=== PATIENT | male | born 1975 | race Caucasian/White ===

== ENCOUNTER 2025-01-03 20:34 | Emergency (ER) | payer MEDICARE, SELFPAY ==
[2025-01-03 20:54] VITALS: BP 142/99; PULSE 97; TEMP 36.6; O2SAT 100; BMI 23.4
[2025-01-03 21:35] VITALS: O2SAT 97
--- NOTE | 2025-01-03 21:51 | ED.PSYCH1 ---
HPI - Psych General Chief Complaint: Psychiatric Symptoms Stated Complaint: SOB Time Seen by Provider: 01/03/25 21:46 Source: Reports patient Mode of arrival: walk-in Limitations: Reports no limitations History of Present Illness HPI Narrative: long history of panic and anxiety attacks. History of COPD and hyperlipidemia. States he moved back from [place] and is trying to find a new doctor. States he ran out of Farelogix 4 days ago. is feeling very anxious. No nausea, diaphoresis or tremor. Related Data Home Medications ?Medication ?Instructions ?Recorded ?Confirmed clonazepam 2 mg tablet 2 mg PO BID 01/03/25 01/03/25 emtricitabine 200 mg-tenofovir 1 tab PO DAILY 01/03/25 01/03/25 alafenamide fumarate 25 mg tablet (Descovy) esomeprazole magnesium 40 mg 40 mg PO Q24H 01/03/25 01/03/25 granules delayed release for susp ezetimibe 10 mg tablet 10 mg PO DAILY 01/03/25 01/03/25 fluticasone fur. 100 mcg-umeclid 1 inh inhalation DAILY 01/03/25 01/03/25 62.5 mcg-vilant 25 mcg inhalat.powder (Trelegy Ellipta) gabapentin 600 mg tablet 600 mg PO Q12H 01/03/25 01/03/25 gemfibrozil 600 mg tablet 600 mg PO DAILY 01/03/25 01/03/25 ipratropium bromide 21 mcg (0.03 2 spray intranasal TID 01/03/25 01/03/25 %) nasal spray levalbuterol HCl 1.25 mg/3 mL 1.25 mg inhalation TID PRN SOB 01/03/25 01/03/25 solution for nebulization montelukast 10 mg tablet 10 mg PO DAILY 01/03/25 01/03/25 pravastatin 40 mg tablet 40 mg PO DAILY 01/03/25 01/03/25 testosterone cypionate 200 mg/mL 100 mg IM QWEEK 01/03/25 01/03/25 intramuscular syringe vardenafil 20 mg tablet 20 mg PO DAILY 01/03/25 01/03/25 Allergies Allergy/AdvReac Type Severity Reaction Status Date / Time aspirin Allergy Unknown Verified 01/03/25 21:00 haloperidol (From Haldol) Allergy Unknown Verified 01/03/25 21:00 morphine Allergy Anaphylaxis Verified 01/03/25 21:00 Review of Systems ROS Status of ROS 10 or more systems reviewed and unremarkable except as noted in history and below Exam Constitutional Vital Signs, click to edit/add: Last Vital Signs Temp 97.9 F 01/03/25 20:54 Pulse 97 H 01/03/25 20:54 Resp 22 H 01/03/25 20:54 BP 142/99 H 01/03/25 20:54 Pulse Ox 100 01/03/25 20:54 O2 Del Method Room Air 01/03/25 20:54 Common normals: no apparent distress, average body habitus, oriented x3, no limitations, healthy appearing, alert and well nourished HENDE Common normals: normocephalic and head/scalp atraumatic Eye Common normals: EOMs intact bilaterally and conjunctivae normal Respiratory Common normals: normal respiratory effort, no retractions, no use of accessory muscles and clear to auscultation bilaterally Cardio Common normals: regular rate, regular rhythm, S1 normal heart sound and S2 normal heart sound GI Common normals: Normal to inspection, nondistended, normoactive bowel sounds present and soft to palpation Extremity Common normals: normal to inspection and full ROM Neuro Common normals: oriented x3, CN's II-XII intact bilaterally, moves all extremities and no focal motor deficits Psych Appearance: grossly normal Course Vital Signs Vital signs: Vital Signs Temperature 97.9 F 01/03/25 20:54 Pulse Rate 97 H 01/03/25 20:54 Respiratory Rate 22 H 01/03/25 20:54 Blood Pressure 142/99 H 01/03/25 20:54 Pulse Oximetry 100 01/03/25 20:54 Oxygen Delivery Method Room Air 01/03/25 20:54 Temperature 97.9 F 01/03/25 20:54 Pulse Rate 97 H 01/03/25 20:54 Respiratory Rate 22 H 01/03/25 20:54 Blood Pressure 142/99 H 01/03/25 20:54 Pulse Oximetry 100 01/03/25 20:54 Oxygen Delivery Method Room Air 01/03/25 20:54 MDM - Psych MDM Narrative Medical decision making narrative: presents requesting refill of Clonazepam as he ran out about 4 days ago. Not able to find a new physician since moving back from [place]. Does not show any sign of withdrawal at this time will provide a prescription for Klonipin to allow him more time to find a new physician. Discharged and provided with name of physician community action worker Discharge Plan Discharge Chief Complaint: Psychiatric Symptoms Clinical Impression: Anxiety disorder Patient Disposition: Home, Self-Care Prescriptions / Home Meds: No Action gabapentin 600 mg tablet 600 mg PO Q12H pravastatin 40 mg tablet 40 mg PO DAILY gemfibrozil 600 mg tablet 600 mg PO DAILY clonazepam 2 mg tablet 2 mg PO BID montelukast 10 mg tablet 10 mg PO DAILY levalbuterol HCl 1.25 mg/3 mL solution for nebulization 1.25 mg inhalation TID PRN (Reason: SOB) ipratropium bromide 21 mcg (0.03 %) spray,non-aerosol 2 spray intranasal TID Rx Instructions: administer into each nostril ezetimibe 10 mg tablet 10 mg PO DAILY vardenafil 20 mg tablet 20 mg PO DAILY esomeprazole magnesium 40 mg granules for susp in packet 40 mg PO Q24H Descovy 200-25 mg tablet 1 tab PO DAILY Trelegy Ellipta 100-62.5-25 mcg blister with device 1 inh inhalation DAILY testosterone cypionate 200 mg/mL syringe 100 mg IM QWEEK Print Language: Welsh Instructions: Anxiety (ED) Additional Instructions: follow up with your family doctor or with community action worker physician Dr Allred Referrals: Physician,Non-Staff, [Primary Care Provider] - 1 week
[2025-01-03] MEDS: CLONAZEPAM 0.5 MG TABLET 2 MG PO (22:30)
== END 2025-01-03 22:45 | disposition home or self-care (01) ==
PROVIDERS: Emergency Provider Internal Medicine
DX: F41.9 Anxiety disorder, unspecified (principal); J44.9 Chronic obstructive pulmonary disease, unspecified; E78.5 Hyperlipidemia, unspecified
CPT/HCPCS: 99283

== ENCOUNTER 2025-03-24 21:29 | Emergency (ER) | payer MEDICARE, MEDICAID, SELFPAY ==
[2025-03-24 21:52] VITALS: BP 137/101; PULSE 96; TEMP 36.6; BMI 25.0
--- NOTE | 2025-03-24 21:59 | PC.NURSE ---
Requesting refill on clonazepam, awaiting psychiatrist referal.
[2025-03-24] MEDS: CLONAZEPAM 0.5 MG TABLET 2 MG PO (22:48)
--- NOTE | 2025-03-25 03:30 | ED.GENADUL1 ---
HPI HPI - General Adult General Chief complaint: Recheck/Abnormal Lab/Rx Stated complaint: withdrawl from medication Time Seen by Provider: 03/24/25 21:32 Source: patient Mode of arrival: walk-in Limitations: no limitations History of Present Illness HPI narrative: This 49-year-old male presents to the ED stating that he has a longstanding history of anxiety and panic disorder and has run out of Klonopin. He has been on benzodiazepines since age 14. His current dosing with Klonopin has been 2 mg twice a day. He ran out of it 4 to 5 days ago and is starting to experience withdrawal symptoms. Patient states that he recently moved back into the area from [place] and for the first couple months his physician at the health department in [facility] wrote him a prescription with a refill but stated that he would need to follow-up with a psychiatrist for further management and he has not been able to find a psychiatrist yet. Patient is not suicidal. Related Data Home Medications ?Medication ?Instructions ?Recorded ?Confirmed clonazepam 2 mg tablet 2 mg PO BID 01/03/25 03/24/25 emtricitabine 200 mg-tenofovir 1 tab PO DAILY 01/03/25 03/24/25 alafenamide fumarate 25 mg tablet (Descovy) esomeprazole magnesium 40 mg 40 mg PO Q24H 01/03/25 03/24/25 granules delayed release for susp ezetimibe 10 mg tablet 10 mg PO DAILY 01/03/25 03/24/25 fluticasone fur. 100 mcg-umeclid 1 inh inhalation DAILY 01/03/25 03/24/25 62.5 mcg-vilant 25 mcg inhalat.powder (Trelegy Ellipta) gabapentin 600 mg tablet 600 mg PO Q12H 01/03/25 03/24/25 gemfibrozil 600 mg tablet 600 mg PO DAILY 01/03/25 03/24/25 ipratropium bromide 21 mcg (0.03 2 spray intranasal TID 01/03/25 03/24/25 %) nasal spray levalbuterol HCl 1.25 mg/3 mL 1.25 mg inhalation TID PRN SOB 01/03/25 01/03/25 solution for nebulization montelukast 10 mg tablet 10 mg PO DAILY 01/03/25 01/03/25 pravastatin 40 mg tablet 40 mg PO DAILY 01/03/25 01/03/25 testosterone cypionate 200 mg/mL 100 mg IM QWEEK 01/03/25 03/24/25 intramuscular syringe vardenafil 20 mg tablet 20 mg PO DAILY 01/03/25 01/03/25 Previous Rx's ?Medication ?Instructions ?Recorded clonazepam 2 mg tablet (Klonopin) 2 mg PO BID #6 tabs 03/24/25 Allergies Allergy/AdvReac Type Severity Reaction Status Date / Time aspirin Allergy Unknown Verified 03/24/25 21:52 haloperidol (From Haldol) Allergy Unknown Verified 03/24/25 21:52 morphine Allergy Anaphylaxis Verified 03/24/25 21:52 Review of Systems ROS Status of ROS 10 or more systems reviewed and unremarkable except as noted in history and below [facility] Social History Little interest or pleasure in doing things: not at all Feeling down, depressed, or hopeless: not at all Exam Narrative Exam Narrative: Anxious in appearance and mildly hypertensive but otherwise not acutely distressed. Mentating normally. HEENT exam is normal to inspection. Neck is supple. Lung sounds are clear to auscultation bilaterally. Heart has regular rate and rhythm and there is no tachycardia. Abdomen soft benign. Patient does not have tremor. There is no facial asymmetry and speech and mentation are clear and intact. He moves all extremities actively. Constitutional Vital Signs, click to edit/add: Last Vital Signs Temp 97.9 F 03/24/25 21:52 Pulse 96 H 03/24/25 21:52 Resp 03/24/25 21:52 BP 137/101 H 03/24/25 21:52 Course Vital Signs Vital signs: Vital Signs Temperature 97.9 F 03/24/25 21:52 Pulse Rate 96 H 03/24/25 21:52 Respiratory Rate 03/24/25 21:52 Blood Pressure 137/101 H 03/24/25 21:52 Temperature 97.9 F 03/24/25 21:52 Pulse Rate 96 H 03/24/25 21:52 Respiratory Rate 03/24/25 21:52 Blood Pressure 137/101 H 03/24/25 21:52 Medical Decision Making MDM Narrative Medical decision making narrative: Patient is given with 3 days prescription for Klonopin 2 mg twice a day with initial dose given in the ED prior to discharge. He is referred to outpatient mental health for follow-up and may return anytime for worsening symptoms. Discharge Plan Discharge Chief Complaint: Recheck/Abnormal Lab/Rx Clinical Impression: Anxiety disorder, Encounter for medication refill Patient Disposition: Home, Self-Care Time of Disposition Decision: 22:26 Condition: Good Mode of Transportation: Private Vehicle Prescriptions / Home Meds: New clonazepam [Klonopin] 2 mg tablet 2 mg PO BID Qty: 6 0RF No Action gabapentin 600 mg tablet 600 mg PO Q12H pravastatin 40 mg tablet 40 mg PO DAILY gemfibrozil 600 mg tablet 600 mg PO DAILY clonazepam 2 mg tablet 2 mg PO BID montelukast 10 mg tablet 10 mg PO DAILY levalbuterol HCl 1.25 mg/3 mL solution for nebulization 1.25 mg inhalation TID PRN (Reason: SOB) ipratropium bromide 21 mcg (0.03 %) spray,non-aerosol 2 spray intranasal TID Rx Instructions: administer into each nostril ezetimibe 10 mg tablet 10 mg PO DAILY vardenafil 20 mg tablet 20 mg PO DAILY esomeprazole magnesium [address] for susp in packet 40 mg PO Q24H Descovy 200-25 mg tablet 1 tab PO DAILY Trelegy Ellipta 100-62.5-25 mcg blister with device 1 inh inhalation DAILY testosterone cypionate 200 mg/mL syringe 100 mg IM QWEEK Print Language: Turkmen Additional Instructions: Follow up with [facility] for outpatient mental health follow up at [phone] Referrals: Roberth Smiley DO [Primary Care Provider] - 1 week Discharge Date/Time: 03/24/25 22:58
== END 2025-03-24 22:58 | disposition home or self-care (01) ==
PROVIDERS: Emergency Provider Emergency Medicine; PCP Family Medicine
DX: Z76.0 Encounter for issue of repeat prescription (principal); F41.9 Anxiety disorder, unspecified
CPT/HCPCS: 99283

== ENCOUNTER 2025-05-28 20:58 | Emergency (ER) | payer MEDICARE, MEDICAID, SELFPAY ==
[2025-05-28 21:17] VITALS: BP 125/75; PULSE 77; TEMP 37.2; O2SAT 98; BMI 25.8
--- NOTE | 2025-05-28 22:13 | ED.GENADUL1 ---
HPI HPI - General Adult General Chief complaint: Recheck/Abnormal Lab/Rx Stated complaint: MEDICATION REFILL Time Seen by Provider: 05/28/25 22:05 Source: patient Mode of arrival: walk-in History of Present Illness HPI narrative: 50-year-old male presented to the emergency department because he ran out of his Klonopin. He ran out 6 days ago. He has been trying to get into see a psychiatrist and his family doctor has been prescribing him Klonopin and he is run into some barriers to getting into see a psychiatrist. He does not have any physical complaints right now. Related Data Home Medications ?Medication ?Instructions ?Recorded ?Confirmed emtricitabine 200 mg-tenofovir 1 tab PO DAILY 01/03/25 03/24/25 alafenamide fumarate 25 mg tablet (Descovy) esomeprazole magnesium 40 mg 40 mg PO Q24H 01/03/25 03/24/25 granules delayed release for susp ezetimibe 10 mg tablet 10 mg PO DAILY 01/03/25 03/24/25 fluticasone fur. 100 mcg-umeclid 1 inh inhalation DAILY 01/03/25 03/24/25 62.5 mcg-vilant 25 mcg inhalat.powder (Trelegy Ellipta) gabapentin 600 mg tablet 600 mg PO Q12H 01/03/25 03/24/25 gemfibrozil 600 mg tablet 600 mg PO DAILY 01/03/25 03/24/25 ipratropium bromide 21 mcg (0.03 2 spray intranasal TID 01/03/25 03/24/25 %) nasal spray levalbuterol HCl 1.25 mg/3 mL 1.25 mg inhalation TID PRN SOB 01/03/25 01/03/25 solution for nebulization montelukast 10 mg tablet 10 mg PO DAILY 01/03/25 01/03/25 pravastatin 40 mg tablet 40 mg PO DAILY 01/03/25 01/03/25 testosterone cypionate 200 mg/mL 100 mg IM QWEEK 01/03/25 03/24/25 intramuscular syringe vardenafil 20 mg tablet 20 mg PO DAILY 01/03/25 01/03/25 Previous Rx's ?Medication ?Instructions ?Recorded clonazepam 1 mg tablet (Klonopin) 1 mg PO BID Anxiety #10 tabs 05/28/25 clonazepam 1 mg tablet (Klonopin) 1 mg PO Q8H anxiety 3 days #9 tabs 05/28/25 Allergies Allergy/AdvReac Type Severity Reaction Status Date / Time aspirin Allergy Unknown Verified 05/28/25 21:17 haloperidol (From Haldol) Allergy Unknown Verified 05/28/25 21:17 morphine Allergy Anaphylaxis Verified 05/28/25 21:17 Review of Systems ROS Narrative A ten point review of systems is negative except as noted above. PFSH PFSH Social History Little interest or pleasure in doing things: not at all Feeling down, depressed, or hopeless: not at all Exam Narrative Exam Narrative: Nurses note and vital signs reviewed and patient is not hypoxic. General:The patient appears well and in no apparent distress.Patient is resting comfortably on cart. Skin:Warm, dry, no pallor noted.There is no rash noted. Head:Normocephalic, atraumatic Eye: Normal conjunctiva, no drainage Ears, Nose, Mouth, and Throat: oral mucosa is moist. Nares patent. Cardiovascular:Regular Rate and Rhythm Respiratory:Patient is in no distress, no accessory muscle use, lungs are clear to auscultation, no wheezing, rales or rhonchi Back:non-tender GI: Soft and nontender Musculoskeletal: The patient has no evidence of calf tenderness, no pitting edema, symmetrical pulses noted bilaterally Neurological:A&O, normal speech Psychiatric:Cooperative Constitutional Vital Signs, click to edit/add: Last Vital Signs Temp 99 F 05/28/25 21:17 Pulse 77 05/28/25 21:17 Resp 16 05/28/25 21:17 BP 125/75 05/28/25 21:17 Pulse Ox 98 05/28/25 21:17 O2 Del Method Room Air 05/28/25 21:17 Course Vital Signs Vital signs: Vital Signs Temperature 99 F 05/28/25 21:17 Pulse Rate 77 05/28/25 21:17 Respiratory Rate 16 05/28/25 21:17 Blood Pressure 125/75 05/28/25 21:17 Pulse Oximetry 98 05/28/25 21:17 Oxygen Delivery Method Room Air 05/28/25 21:17 Temperature 99 F 05/28/25 21:17 Pulse Rate 77 05/28/25 21:17 Respiratory Rate 16 05/28/25 21:17 Blood Pressure 125/75 05/28/25 21:17 Pulse Oximetry 98 05/28/25 21:17 Oxygen Delivery Method Room Air 05/28/25 21:17 Medical Decision Making MDM Narrative Medical decision making narrative: He was given a prescription for ten 1 mg Klonopin tablets and was informed that he would need to get future prescriptions from his PCP or psychiatrist. Treatment diagnosis and follow-up were discussed with the patient. Differential Diagnosis Differential Diagnosis: Anxiety, medication refill Discharge Plan Discharge Chief Complaint: Recheck/Abnormal Lab/Rx Clinical Impression: Encounter for medication refill Patient Disposition: Home, Self-Care Time of Disposition Decision: 22:05 Condition: Good Mode of Transportation: Private Vehicle Prescriptions / Home Meds: New clonazepam [Klonopin] 1 mg tablet 1 mg PO Q8H 3 Days Qty: 9 0RF clonazepam [Klonopin] 1 mg tablet 1 mg PO BID Qty: 10 0RF Discontinued clonazepam [Klonopin] 1 mg tablet 1 mg PO BID No Action gabapentin 600 mg tablet 600 mg PO Q12H pravastatin 40 mg tablet 40 mg PO DAILY gemfibrozil 600 mg tablet 600 mg PO DAILY montelukast 10 mg tablet 10 mg PO DAILY levalbuterol HCl 1.25 mg/3 mL solution for nebulization 1.25 mg inhalation TID PRN (Reason: SOB) ipratropium bromide 21 mcg (0.03 %) spray,non-aerosol 2 spray intranasal TID Rx Instructions: administer into each nostril ezetimibe 10 mg tablet 10 mg PO DAILY vardenafil 20 mg tablet 20 mg PO DAILY esomeprazole magnesium [address] for susp in packet 40 mg PO Q24H Descovy 200-25 mg tablet 1 tab PO DAILY Trelegy Ellipta 100-62.5-25 mcg blister with device 1 inh inhalation DAILY testosterone cypionate 200 mg/mL syringe 100 mg IM QWEEK Print Language: Uzbek Instructions: Medicine Refill (ED) Additional Instructions: Future refills should come from your PCP or psychiatrist. Referrals: Roberth Smiley DO [Primary Care Provider] - 1 week
[2025-05-28] MEDS: CLONAZEPAM 0.5 MG TABLET 1 MG PO (23:10)
== END 2025-05-28 23:14 | disposition home or self-care (01) ==
PROVIDERS: Emergency Provider Emergency Medicine; PCP Family Medicine
DX: Z76.0 Encounter for issue of repeat prescription (principal)
CPT/HCPCS: 99283

== ENCOUNTER 2025-08-21 06:23 | Emergency (ER) | payer MEDICARE, MEDICAID, SELFPAY ==
[2025-08-21 06:26] VITALS: BP 137/90; PULSE 109; TEMP 37; O2SAT 97; BMI 24.3
[2025-08-21 06:33] VITALS: O2SAT 95
--- NOTE | 2025-08-21 06:38 | XR_ITS ---
The [address] [address] Patient Name: LESLIE JUAREZ MRN: [id number] date: 1975 Sex: M Assigned Patient Location: ER Current Patient Location: Accession/Order Number: [id number] Exam Date: 08/21/2025 06:47 Report Date: 08/21/2025 09:00 At the request of: FANG ABRAHAM Procedure: XR chest 2V PA AND LATERAL CHEST: CLINICAL HISTORY: cough , shortness of breath and wheezing. History of tobacco use. COMPARISON: None A suspected nipple shadow is visualized on the right. The lungs are hyperinflated. There is no focal parenchymal consolidation, sizable effusion or pneumothorax. The cardiac, hilar and mediastinal silhouettes are within normal limits. There is no vascular congestion. The visualized bony thorax is intact. There is dextroscoliotic curvature and endplate spurring. XR/XR chest 2V IMPRESSION: OBSTRUCTIVE LUNG DISEASE. NO ACUTE CARDIOPULMONARY ABNORMALITY. Impression dictated by: Cassie Santana M.D. 08/21/2025 9:00 AM Dictation Location: [id number] Electronically authenticated by: [id number] Date: 08/21/2025 09:00
[2025-08-21 06:40] VITALS: O2SAT 95
--- OUTSIDE RECORDS SUMMARY | 2025-08-21 06:56 | XMS_ITS | Clinical Summary ---
Author Organization [facility] Address [address] [place] [id number] Care Team Providers Care Fan Balancer Name Role Phone Renzo Capellan Primary Care Provider + Allergies Active AllergyReactionsCriticalityNoted HgklKnzbqnqbMsdnzsg30/29/2009Haloperidol Qounqlw0406/21/2009 Throat closed up FbbffeurMohuyzsl68/29/2009 Headache, trouble breathing Medications MedicationSigDispense QuantityRefillsLast FilledStart DateEnd DateStatus montelukast sodium(SINGULAIR 10 MG TAB) Take one(1) tablet daily 0 ctive fluticasone propionate(FLONASE 50 MCG/ACTUATION NASAL SPRAY) Two puffs per nostril every morning 0 ctive propranolol hcl(INDERAL LA 60 MG 24 HR CAP) One tablet daily. 0 ctive ALBUTEROL SULFATE HFA 90 MCG/ACTUATION AEROSOL INHALER Take two puffs as needed every three hours 0 ctive omega-3 fatty acids/vitamin e(FISH OIL 1,000 MG CAP) Take 4 tablets daily. (4000mg total) 0 ctive clonazepam(KLONOPIN 1 MG TAB) Take one in am, 2 in pm and one at HS 0 ctive syringe w-needle,disposab,3ml(BD LUER-ELSA SYRINGE 3 ML 22 X 1 ) uses one every two weeks ( 12/29 needle is possible) 10 ctive esomeprazole mag trihydrate(NEXIUM 40 MG CAP) Take one(1) capsule daily. 0 ctive CHOLECALCIFEROL (VITAMIN D3) 1,000 UNIT TAB two tabs daily 0 ctive cyanocobalamin(VITAMIN B-12 1,000 MCG TAB) one po daily. 0 ctive CHOLECALCIFEROL (VITAMIN D3) 2,000 UNIT CAP 2000 IU a day. Gel cap 0 ctive testosterone cypionate 200 mg/mL INTRAMUSC. injection Inject intramuscularly. 200 mg (1 cc ) Im every 2 weeks. 10 mL ctive Syringe with Needle, Disp, (BD LUER-ELSA SYRINGE) 3 mL 23 x 1 Misc Syrg Uses two per month with testo injections IM 3 Syringe ctive Active Problems ProblemNoted DateDiagnosed DateNonspecific abnormal results of thyroid function study04/20/2010Unspecified vitamin D ldkcwfucsj14/28/2010Vitamin B12 deficiency 04/20/20109154Susjwternj69/03/2010Primary male thmmpkklznoa52/29/2009S/ P L Orchiectomy (Ledying cell tumor)06/21/2009Extremity pain06/21/2009 Family History Medical HistoryRelationCommentsCancerFatherdied liver cancer: Hx hep C: alcoholism and drug abuse.DiabetesMaternal GrandmotherCoronary Artery Disease MotherDiabetesPaternal GrandfatherThyroidPaternal GrandmotherCancerSister3/3 ovarian and Cervical CaRelationStatusCommentsFatherMaternal GrandmotherMother Paternal GrandfatherPaternal GrandmotherSister Social History Tobacco UseTypesPacks/DayYears UsedDateSmoking Tobacco: Every DayCigarettes1.514 Alcohol UseStandard Drinks/WeekCommentsNo0 (1 standard drink = 0.6 oz pure alcohol)Sex and Gender InformationValueDate RecordedSex Assigned at BirthNot on fileLegal EopRzqf80/02/2012 8:03 AM ESTGender IdentityNot on fileSexual OrientationNot on fileOccupationIndustryJob Start DateJob End DatedisableNot on fileNot on fileNot on file Last Filed Vital Signs Vital SignReadingTime TakenCommentsBlood Jihwrhyf813/6803 2:46 PM EDT Nqvzc8723 2:46 PM EDTTemperature--Respiratory Rate--Oxygen Saturation-- Inhaled Oxygen Concentration--Vbxrnc18.1 kg (148 lb)11/18/2010 2:46 PM EDTHeight 172.7 cm (5' 8 )11/18/2010 2:46 PM EDTBody Mass Index22. 2:46 PM EDT Plan of Treatment Health MaintenanceDue DateLast DoneCommentsAnxiety Iqzifibce35/27/1992Depression Khlehwcgs30/27/1992Hepatitis C Lbgcqzsii22/27/1992DTaP,Tdap,Td Vaccine (1 - Tdap)1993Hepatitis B Vaccine (1 of 3 - 19+ 3-dose series)1993Lipid Uqabiikwp45/27/2009CT Xfibytmjzsco95/27/2019Cologuard (FIT-DNA)2019 Ovrzbjcxjqy98/27/2019Colorectal Cancer Chhmzrigc40/27/2019Diabetes Screening Fecal Occult Blood04/19/20193102Ohpppawjcuaog17/27/2019 Pneumococcal Vaccine: 50+ (1 of 1 - PCV)2024Shingrix Vaccine (1 of 2) 4Covid-19 Vaccine (1 - season)2025Influenza Vaccine (#1) 2025RSV Vaccine (1 - 1-dose 75+ series)2049HIV ScreeningCompleted 07/02/2012, 12/05/2010 Procedures Procedure NamePriorityDate/TimeAssociated DiagnosisCommentsHIV 1/2 COMBO WITH REFLEX TO PWSWBRLJUSFJOFB67/09/2012 5:19 AM EST COMPREHENSIVE METABOLIC AHCUBNbwpnnh77/29/2009 2:21 PM EDT Primary Male Hypogonadism from Last 3 Months or Most Recently Relevant to Health Maintenance Results * HIV AB 1&2 SCREEN (07/02/2012 5:19 AM EST)ComponentValueRef RangeTest Method Analysis TimePerformed AtPathologist SignatureHIV 1 & 2 Ab (EIA)Nonreactive NonreactiveAC LABORATORYSpecimen (Source)Anatomical Location / Laterality Collection Method / VolumeCollection TimeReceived Time07/02/2012 5:19 AM EST 07/02/2012 5:24 AM EST Narrative Authorizing ProviderResult TypeResult StatusHarvinder Davis Pidhorodeckyj LABORATORYFinal ResultPerforming OrganizationAddressCity/State/ZIP CodePhone Number [facility] [place] [address] * COMP METABOLIC PANEL (06/21/2009 2:21 PM EDT)ComponentValueRef RangeTest MethodAnalysis TimePerformed AtPathologist SignatureProtein, Total6.76.0 - 8.4 g/dLCH[facility] LABORATORYAlbumin4.23.5 - 5.0 g/dLCH[facility] LABORATORYCalcium9.58.5 - 10.5 mg/dLCH[facility]ORY Bilirubin, Total0.50.0 - 1.5 mg/dLCH[facility] LABORATORYAlkaline Jrjrvtswrev0790 - 150 U/L[facility] HNTIGDQDSSXVQ744 - 40 U/L [facility] QFRSJBHKRJTuihunn0732 - 100 mg/dL[facility] HHMEKGCOPWJYI6822 - 25 mg/dLCH[facility] LABORATORYCreatinine0.870.70 - 1.40 mg/dL[facility] YRLOCGXELTVzegzf987877 - 146 mmol/LCK[facility]ING [facility] LABORATORYPotassium4.33.5 - 5.0 mmol/LCKETTERING [facility] KBZTHYXMHYWzujvupg03771 - 110 mmol/LCK[facility]TERING [facility] GEKTNXFLRYZE08861 - 32 mmol/LCK[facility] LABORATORYAnion Ugg348 - 15 mmol/LCK[facility] OVMXYQDITMKEX832 - 50 U/LCK[facility] LABORATORYeGFR- >60[facility] LABORATORYeGFR-All Other Races>60. [facility] LABORATORYComment: eGFR (Estimated GFR) Units of measure: mL/min/1.73 meters squared eGFR is derived from the reexpressed MDRD Study equation using the following parameters: serum creatinine, age, gender and race. The creatinine assay has been calibrated to be traceable to IDMS. An eGFR <60 mL/min/1.73m2 for >3 months is consistent with chronic kidney disease. Refer to KDOQI guidelines for clinical interpretation. Specimen (Source)Anatomical Location / LateralityCollection Method / Volume Collection TimeReceived TimeBlood specimen (specimen)BLOOD SPECIMEN / Unknown 06/21/2009 2:21 PM EDT Narrative Authorizing ProviderResult TypeResult StatusPatricio R AycinenaLABORATORYFinal ResultPerforming OrganizationAddressCity/State/ZIP CodePhone Number [facility] [address] [place] [address] from Last 3 Months or Most Recently Relevant to Health Maintenance Insurance Care Teams Team MemberRelationshipSpecialtyStart DateEnd Date Renzo Capellan DO PCP - General05/23/09
[2025-08-21 06:59] LABS: SARS-CoV-2 Ag NEGATIVE (NEGATIVE)
--- NOTE | 2025-08-21 07:21 | ED.GENADUL1 ---
HPI HPI - General Adult General Chief complaint: Upper Respiratory Infection Stated complaint: COUGH, SHORTNESS OF BREATH, WHEEZING, CHEST CONGES Time Seen by Provider: 08/21/25 07:08 Source: patient Mode of arrival: walk-in History of Present Illness HPI narrative: 50-year-old male presents for a cough. He has been sick for about 5 days and has gotten worse in the past 2. He has been coughing up some phlegm and he has been using his Xopenex at home. He is on his last vial for his nebulizer. He states he has been wheezing. He has not had a known fever. No hemoptysis. He has a history of COPD and he is a smoker. Related Data Home Medications ?Medication ?Instructions ?Recorded ?Confirmed emtricitabine 200 mg-tenofovir 1 tab PO DAILY 01/03/25 03/24/25 alafenamide fumarate 25 mg tablet (Descovy) esomeprazole magnesium 40 mg 40 mg PO Q24H 01/03/25 03/24/25 granules delayed release for susp ezetimibe 10 mg tablet 10 mg PO DAILY 01/03/25 03/24/25 fluticasone fur. 100 mcg-umeclid 1 inh inhalation DAILY 01/03/25 03/24/25 62.5 mcg-vilant 25 mcg inhalat.powder (Trelegy Ellipta) gabapentin 600 mg tablet 600 mg PO Q12H 01/03/25 03/24/25 gemfibrozil 600 mg tablet 600 mg PO DAILY 01/03/25 03/24/25 ipratropium bromide 21 mcg (0.03 2 spray intranasal TID 01/03/25 03/24/25 %) nasal spray levalbuterol HCl 1.25 mg/3 mL 1.25 mg inhalation TID PRN SOB 01/03/25 01/03/25 solution for nebulization montelukast 10 mg tablet 10 mg PO DAILY 01/03/25 01/03/25 pravastatin 40 mg tablet 40 mg PO DAILY 01/03/25 01/03/25 testosterone cypionate 200 mg/mL 100 mg IM QWEEK 01/03/25 03/24/25 intramuscular syringe vardenafil 20 mg tablet 20 mg PO DAILY 01/03/25 01/03/25 Previous Rx's ?Medication ?Instructions ?Recorded clonazepam 1 mg tablet (Klonopin) 1 mg PO BID Anxiety #10 tabs 05/28/25 clonazepam 1 mg tablet (Klonopin) 1 mg PO Q8H anxiety 3 days #9 tabs 05/28/25 azithromycin 250 mg tablet See Rx Instructions PO .COMPLEX #6 08/21/25 (Zithromax Z-Isidro) tabs codeine 10 mg-guaifenesin 100 mg/5 5 ml PO Q6H PRN cough #200 mL 08/21/25 mL oral liquid levalbuterol HCl 1.25 mg/3 mL 1.25 mg (3 mL) inhalation Q6H PRN 08/21/25 solution for nebulization shortness of breath or wheezing #75 mL prednisone 10 mg tablet See Rx Instructions .Route 08/21/25 .COMPLEX #30 tabs Allergies Allergy/AdvReac Type Severity Reaction Status Date / Time aspirin Allergy Unknown Verified 05/28/25 21:17 haloperidol (From Haldol) Allergy Unknown Verified 05/28/25 21:17 morphine Allergy Anaphylaxis Verified 05/28/25 21:17 Review of Systems ROS Narrative A ten point review of systems is negative except as noted above. PFSH PFS Social History Little interest or pleasure in doing things: not at all Feeling down, depressed, or hopeless: not at all Exam Narrative Exam Narrative: Nurses note and vital signs reviewed General:The patient appears well and in no apparent distress.Patient is resting comfortably on cart. Skin:Warm, dry, no pallor noted.There is no rash noted. Head:Normocephalic, atraumatic Eye: Normal conjunctiva, no drainage Ears, Nose, Mouth, and Throat: oral mucosa is moist. Nares patent. Cardiovascular:Regular Rate and Rhythm Respiratory: Bilateral rhonchi throughout. He is speaking in full sentences. Back:non-tender GI: Soft and nontender Musculoskeletal: The patient has no evidence of calf tenderness, no pitting edema, symmetrical pulses noted bilaterally Neurological:A&O, normal speech Psychiatric:Cooperative Constitutional Vital Signs, click to edit/add: Last Vital Signs Temp 98.6 F 08/21/25 06:26 Pulse 101 H 08/21/25 07:35 Resp 18 08/21/25 06:26 BP 137/90 08/21/25 06:26 Pulse Ox 97 08/21/25 07:35 O2 Del Method Room Air 08/21/25 07:35 Course Vital Signs Vital signs: Vital Signs Temperature 98.6 F 08/21/25 06:26 Pulse Rate 109 H 08/21/25 06:26 Respiratory Rate 18 08/21/25 06:26 Blood Pressure 137/90 08/21/25 06:26 Pulse Oximetry 97 08/21/25 06:26 Oxygen Delivery Method Room Air 08/21/25 06:26 Temperature 98.6 F 08/21/25 06:26 Pulse Rate 101 H 08/21/25 07:35 Respiratory Rate 18 08/21/25 06:26 Blood Pressure 137/90 08/21/25 06:26 Pulse Oximetry 97 08/21/25 07:35 Oxygen Delivery Method Room Air 08/21/25 07:35 Medical Decision Making MDM Narrative Medical decision making narrative: COVID and influenza test are negative. Chest x-ray my interpretation shows COPD and no infiltrate. He was offered admission but does not feel that he needs it. He is prescribed Zithromax, prednisone, Xopenex, and Robitussin AC and is discharged home. Instructed to return if symptoms worsen. Treatment diagnosis and follow-up were discussed with the patient. Differential Diagnosis Differential Diagnosis: COVID, influenza, pneumonia, COPD Lab Data Lab results reviewed: Yes I reviewed the patient's lab results Labs: Lab Results 08/21/25 08/21/25 Range/Units 06:34 07:35 WBC 7.5 (4.0-11.0) 10^3/uL RBC 4.97 (4.70-6.10) 10^6/uL Hgb 16.6 (14.0-18.0) g/dL Hct 48.0 (42.0-54.0) % MCV 96.6 H (80.0-94.0) fL MCH 33.4 (25.9-34.0) pg MCHC 34.6 (29.9-35.2) g/dL RDW 13.2 (11.0-15.0) % Plt Count 176 (150-450) 10^3/uL MPV 11.1 (9.5-13.5) fL Neut % (Auto) 83.3 H (43.0-75.0) % Lymph % (Auto) 9.7 L (20.5-60.0) % [place] % (Auto) 5.3 (1.7-12.0) % Eos % (Auto) 0.7 L (0.9-7.0) % Baso % (Auto) 0.7 (0.2-2.0) % Neut # (Auto) 6.3 (1.4-6.5) 10^3/uL Lymph # (Auto) 0.7 L (1.2-3.8) 10^3/uL [place] # (Auto) 0.4 (0.3-0.8) 10^3/uL Eos # (Auto) 0.1 (0.0-0.7) 10^3/uL Baso # (Auto) 0.1 (0.0-0.1) 10^3/uL Abs Immat Gran (auto) 0.02 (0.00-0.03) 10^3/uL Imm/Tot Granulo (auto) 0.3 (0.0-0.5) % Sodium 138 (136-145) mmol/L Potassium 3.9 (3.5-5.1) mmol/L Chloride 99 (98-107) mmol/L Carbon Dioxide 27.9 (21.0-32.0) mmol/L Anion Gap 15.0 BUN 8.0 (7.0-18.0) mg/dL Creatinine 0.81 (0.70-1.30) mg/dL Est GFR ( Amer) >60 (>=60 mL/min/1.73m^2) Est GFR (Non-Af Amer) >60 (>=60 mL/min/1.73m^2) BUN/Creatinine Ratio 9.9 Glucose 101 (74-106) mg/dL Calcium 9.2 (8.5-10.1) mg/dL Influenza Type A Ag Negative Influenza Type B Ag Negative RSV Antigen Not detected (NOT DETECTE) SARS-CoV-2 Ag (CV2AG) Negative (NEGATIVE) Imaging Data Chest x-ray: My impression: COPD, no acute finding Discharge Plan Discharge Chief Complaint: Upper Respiratory Infection Clinical Impression: Acute exacerbation of chronic obstructive pulmonary disease Patient Disposition: Home, Self-Care Time of Disposition Decision: 08:40 Condition: Good Mode of Transportation: Private Vehicle Prescriptions / Home Meds: New prednisone 10 mg tablet See Rx Instructions .ROUTE .COMPLEX Qty: 30 0RF Rx Instructions: 4 by mouth daily for three days then 3 by mouth daily for three days then 2 by mouth daily for three days then 1 by mouth daily for three days azithromycin [Zithromax Z-Isidro] 250 mg tablet See Rx Instructions .ROUTE .COMPLEX Qty: 6 0RF Rx Instructions: For 250 mg dose pack: take 500 mg today (day 1), then 250 mg for 4 days (days 2-5) codeine-guaifenesin 10-100 mg/5 mL liquid 5 ml PO Q6H PRN (Reason: cough) Qty: 200 0RF levalbuterol HCl 1.25 mg/3 mL solution for nebulization 1.25 mg inhalation Q6H PRN (Reason: shortness of breath or wheezing) Qty: 75 0RF No Action gabapentin 600 mg tablet 600 mg PO Q12H pravastatin 40 mg tablet 40 mg PO DAILY gemfibrozil 600 mg tablet 600 mg PO DAILY montelukast 10 mg tablet 10 mg PO DAILY levalbuterol HCl 1.25 mg/3 mL solution for nebulization 1.25 mg inhalation TID PRN (Reason: SOB) ipratropium bromide 21 mcg (0.03 %) spray,non-aerosol 2 spray intranasal TID Rx Instructions: administer into each nostril ezetimibe 10 mg tablet 10 mg PO DAILY vardenafil 20 mg tablet 20 mg PO DAILY esomeprazole magnesium [address] for susp in packet 40 mg PO Q24H Descovy 200-25 mg tablet 1 tab PO DAILY Trelegy Ellipta 100-62.5-25 mcg blister with device 1 inh inhalation DAILY testosterone cypionate 200 mg/mL syringe 100 mg IM QWEEK clonazepam [Klonopin] 1 mg tablet 1 mg PO Q8H 3 Days Qty: 9 0RF clonazepam [Klonopin] 1 mg tablet 1 mg PO BID Qty: 10 0RF Print Language: Slovak Instructions: COPD (Chronic Obstructive Pulmonary Disease) (ED) Referrals: Roberth Smiley DO [Primary Care Provider] - 1 week
[2025-08-21] MEDS: METHYLPREDNISOLONE SOD SUCC PF 125 MG/2 ML VIAL IVP (07:32)
[2025-08-21] MEDS: LEVALBUTEROL HCL 1.25 MG/3 ML VIAL NEB IH (07:34)
[2025-08-21 07:35] VITALS: PULSE 101; O2SAT 97
[2025-08-21 07:52] LABS: Hematocrit 48.0 % (42.0-54.0); Hemoglobin 16.6 g/dL (14.0-18.0); Immature Granulocytes Abs Auto 0.02 10^3/uL (0.00-0.03); Immature Granulocytes Pct Auto 0.3 % (0.0-0.5); Lymphocytes Absolute Auto 0.7 10^3/uL (1.2-3.8); Mean Corpuscular HGB Conc 34.6 g/dL (29.9-35.2); Mean Corpuscular Hemoglobin 33.4 pg (25.9-34.0); Mean Corpuscular Volume 96.6 fL (80.0-94.0); Platelet Count 176 10^3/uL (150-450); Red Blood Count 4.97 10^6/uL (4.70-6.10); White Blood Count 7.5 10^3/uL (4.0-11.0)
[2025-08-21 08:01] LABS: Anion Gap 15.0; Blood Urea Nitrogen 8.0 mg/dL (7.0-18.0); Calcium 9.2 mg/dL (8.5-10.1); Carbon Dioxide 27.9 mmol/L (21.0-32.0); Chloride 99 mmol/L (98-107); Estimated GFR (African America >60 (>=60 mL/min/1.73m^2); Estimated GFR (Non-African Ame >60 (>=60 mL/min/1.73m^2); Glucose 101 mg/dL (74-106); Potassium 3.9 mmol/L (3.5-5.1); Sodium 138 mmol/L (136-145)
== END 2025-08-21 08:49 | disposition home or self-care (01) ==
PROVIDERS: Emergency Medicine; Emergency Provider Emergency Medicine; PCP Family Medicine
DX: J44.1 Chronic obstructive pulmonary disease with (acute) exacerbation (principal); F17.200 Nicotine dependence, unspecified, uncomplicated
CPT/HCPCS: 36415; 71046; 80048; 85025; 87420; 87804; 87811; 94640; 96374; 99284; J2919